=== PATIENT | female | born 1995 | race Two or more races ===

== ENCOUNTER 2019-12-23 07:13 | Day surgery (SDC) | payer OTHER, SELFPAY ==
[~2019-12-23] VITALS: Ht 154.9 cm; Wt 59.9 kg
[2019-12-23] MEDS ORDERED: fentaNYL citrate 0.05 MG/ML VIAL ONE (09:47)
[2019-12-23] MEDS ORDERED: MIDAZOLAM 2 MG/2 ML VIAL ONE ×3 (09:47→09:48)
[2019-12-23] MEDS ORDERED: MIDAZOLAM 2 MG/2 ML VIAL IVP ONE ×2 (10:20→10:55)
== END 2019-12-23 10:45 | disposition home or self-care (01) ==
LOC: MDS 07:13 → MMU 07:14 → MDS 10:45
PROVIDERS: ATTEND Internal Medicine Gastroenterology
DX: R10.13 Epigastric pain (principal); K21.9 Gastro-esophageal reflux disease without esophagitis; Z20.828 Contact with and (suspected) exposure to other viral communicable diseases; Z88.1 Allergy status to other antibiotic agents; Z79.899 Other long term (current) drug therapy
CPT/HCPCS: 36415; 43239; 81025; 86677; J2250; U0003; J3010